=== PATIENT | female | born 1970 | race Two or more races ===

== ENCOUNTER 2022-04-06 09:33 | Emergency (ER) | payer OTHER, BC ==
[2022-04-06] MEDS ORDERED: Ketorolac 60 MG/2 ML SDV IM ONE (13:34)
== END 2022-04-06 14:30 | disposition home or self-care (01) ==
LOC: MW.ED 09:33
DX: S00.83XA Contusion of other part of head, initial encounter (principal); S29.9XXA Unspecified injury of thorax, initial encounter; E78.00 Pure hypercholesterolemia, unspecified; I10 Essential (primary) hypertension; Z79.899 Other long term (current) drug therapy; W18.09XA Striking against other object with subsequent fall, initial encounter
CPT/HCPCS: 70486; 71101; 96372; 99284; J1885

== ENCOUNTER 2022-09-04 11:21 | Emergency (ER) | payer OTHER, BC ==
[2022-09-04] MEDS ORDERED: Benzocaine 20% Topical Spray UD MUCMEM STA (12:34)
[2022-09-04] MEDS ORDERED: Ibuprofen 600 MG Tab PO ONE (12:34)
[2022-09-04] MEDS ORDERED: Diphtheria,Pertussis(Acell),Tetanus Vaccine 0.5 ML Syringe IM ONE (13:26)
== END 2022-09-04 13:47 | disposition home or self-care (01) ==
LOC: MW.ED 11:21
DX: S00.531A Contusion of lip, initial encounter (principal); E78.00 Pure hypercholesterolemia, unspecified; I10 Essential (primary) hypertension; Z79.899 Other long term (current) drug therapy; W50.0XXA Accidental hit or strike by another person, initial encounter; Y92.89 Other specified places as the place of occurrence of the external cause; Y99.0 Civilian activity done for income or pay
CPT/HCPCS: 99283; A9270; 10160; 99282

== ENCOUNTER 2023-03-21 11:04 | Emergency (ER) | payer OTHER, BC | END 2023-03-21 19:03 | disposition home or self-care (01) | LOC: MW.ED 11:04 | DX: S00.531A Contusion of lip, initial encounter (principal); E78.00 Pure hypercholesterolemia, unspecified; I10 Essential (primary) hypertension; Z79.899 Other long term (current) drug therapy; W50.0XXA Accidental hit or strike by another person, initial encounter | CPT/HCPCS: 99283 ==